=== PATIENT | female | born 1980 | race Caucasian/White ===

== ENCOUNTER 2018-03-26 15:07 | Emergency (ER) | payer BC, SELFPAY ==
[2018-03-26 15:09] VITALS: BP 109/71; PULSE 116; RESP 18; TEMP 40.4; O2SAT 97; BMI 28.3
--- NOTE | 2018-03-26 15:36 | ED.VISSUMM ---
- ER Visit Summary Date of Service: 03/26/18 Chief Complaint: Fever and chills History of Present Illness: The patient is a 37 F no senior past medical history only prior surgery and C-sections. States that on Thursday she started having fever, chills and body sweats. Mild nausea. Really denies any abdominal pain. No dysuria. No vaginal discharge she is currently on her menstrual cycle. She also has a dry nonproductive cough. Denies shortness of breath. No chest pain. She has diffuse body aches and headache. No significant neck pain. No rashes. She did recently travel from [place] on the plane. She has not been out of the country. Physical Examination: Vital signs are stable she is a fever of 104.7. Pulse ox 97% on room air. Heart rate of 116. She looks like she feels ill but does not look septic or toxic. She does not look severely dehydrated. She is in no distress. H EENT exam mildly dry mucous membranes. Posterior pharynx unremarkable. TMs normal. No facial droop. No trauma to the face or head. Neck nontender. No lymphadenopathy. Able to easily flex and touch her chin to her chest. No meningismus. Trachea midline. Lungs dry hacking cough. No rales, rhonchi or wheezing. Heart tachycardic rate about 116 no murmur. Chest wall nontender. Abdomen soft nontender nondistended normal bowel sounds no peritoneal signs. She is moving all 4 extremities. They are neurovascularly intact. There is no red, hot or swollen joints. The arms and legs are nontender with normal motion. Back is nontender no CVA tenderness. Skin unremarkable. No rashes. No petechiae or purpura. Neurologically he is awake and alert. Test Results: White count 12.3 H&H 11 and 33. No bands. BMP normal. Liver enzymes normal. UA normal. Lactic acid normal 1.0. Chest x-ray shows a left perihilar pneumonia. Blood cultures ?2 are pending. Rapid flu was negative. Emergency Department Course and Treatment: Female with a fever and diffuse body aches. Should be worked up for a bacterial infection versus a viral etiology. She will be treated with a liter normal saline and oral Tylenol. Treatment Plan: Oscar exam at 1735 patient feels better is doing well. She was treated with Tylenol currently her fever is 100. She was given a liter normal saline. I discussed with both her and her mother treatment inpatient versus outpatient. She prefers outpatient therapy. She will be given first dose of Levaquin here and placed on Levaquin the next 7 days. Return if feeling worse. Disposition: Discharge Impression: Acute fever Mild dehydration Community-acquired pneumonia left perihilar This note was generated with [employer] dictation software. It may contain incorrect words, spelling, and punctuation that were not noted in review of the chart prior to signing ED Disposition - Plan for ED Patient: Chief Complaint: Abd Pain Referrals: Shilo Camarena [Primary Care Provider] -
[2018-03-26] MEDS: 0.9% Normal Saline 1,000 ML 1000 ML IV (15:48)
[2018-03-26] MEDS: Acetaminophen 500 MG Tablet 1000 MG PO (15:48)
--- NOTE | 2018-03-26 16:10 | RAD_ITS ---
STUDY: X-RAY CHEST REASON FOR EXAM: Female, 37 years old. Severe cough and chest pain x3 days TECHNIQUE: PA and lateral views of the chest. COMPARISON: None. FINDINGS: EKG leads overlie the chest Lungs are expanded. Right lung is clear. There is a left perihilar opacification likely representing infiltrate but this could also represent a neoplastic process. Follow-up recommended to assure complete resolution. If there is not significant improvement within a week to 10 days, further evaluation with chest CT would be recommended to exclude an underlying lesion. There is no demonstrated effusion. Normal size heart. Normal mediastinum and arslan. Normal visualized pulmonary arteries. Normal visualized aortic arch and descending thoracic aorta. Normal visualized thoracic spine. Normal visualized ribs, clavicles, and shoulders. There is no demonstrated abnormality of the visualized soft tissue structures of the upper abdomen. RAD/Chest PA and Lateral IMPRESSION: Left perihilar opacification, likely infiltrate but neoplastic process cannot be excluded. Electronically Signed: Mayito Heart MD at 16:25 EDT , Service support ,
[2018-03-26 16:18] LABS: Absolute Lymphocyte Count 0.88 X10^3/ul (0.83-4.51); Absolute Neutrophil Count 10.6 X10^3/uL (2.0-7.7); Basophil# 0.02 X10^3/uL; Basophil% 0.2 % (0-1); Hematocrit 33.9 % (37-47); Hemoglobin 11.1 g/dl (12.0-15.0); Lymphocyte # 0.88 X10^3/ul (4.0); Lymphocyte % 7.1 % (19-41); Mean Corp Hgb Conc 32.7 g/gl (32-36); Mean Corpuscular Hgb 31.3 pg (27.0-32.0); Mean Corpuscular Volume 95.5 fL (81-99); Mean Platelet Vol. 9.3 fl (6.2-12.0); Monocyte# 0.81 X10^3/uL; Monocyte% 6.6 % (0-10); Neutrophil # 10.59 X10^3/uL (2.7-7.7); Neutrophil % 85.9 % (47-70); Platelet Count 159 K/mm3 (150-450); RBC Distribution Width CV 12.8 % (11.6-14.6); RBC Distribution Width SD 44.8 fl (35.1-43.9); Red Blood Count 3.55 M/mm3 (4.2-5.4); White Blood Count 12.3 K/mm3 (4.4-11.0)
[2018-03-26 16:20] LABS: POSITIVE COUNT NO; POSITIVE DIFFERENTIAL NO; POSITIVE MORPHOLOGY NO
[2018-03-26 16:27] LABS: AST(SGOT) 12 U/L (15-37); Alanine Aminotransfer ALT/SGPT 17 U/L (13-56); Albumin, Serum 3.4 g/dL (3.2-5.0); Alkaline Phosphatase 43 U/L (45-117); Anion Gap 9 (5-15); BUN 8 mg/dL (7-18); Bilirubin, Direct 0.11 mg/dL (0.00-0.30); Calcium,Total 8.5 mg/dL (8.5-10.1); Chloride 101 mmol/L (98-107); Creatinine, Serum 0.89 mg/dL (0.55-1.02); EST Glomerular Filtration Rate 74 mL/min (>60); Est Glom Filt Rate - Afr Amer 90 mL/min (>60); Estimated Creatinine Clearance 85.61 ml/min; Globulin 4.3 g/dL (2.2-4.2); Glucose 139 mg/dL (74-106); Potassium 3.6 mmol/L (3.5-5.1); Protein, Total 7.7 g/dL (6.4-8.2); Sodium Level 136 mmol/L (136-145)
[2018-03-26 17:05] LABS: Bacteria 0 SEEN /hpf (None Seen); Mucous, Urine 0 SEEN /hpf (<or=2+); Red Blood Cells-Urine 0 SEEN /hpf (0-5); White Blood Cells 0 SEEN /hpf (0-5)
[2018-03-26 17:10] VITALS: TEMP 37.8
[2018-03-26 17:14] LABS: Color, Urine Yellow (Yellow); Glucose, Dipstick Normal (Normal); Ketone-Dipstick 15 mg/dl (Negative); Leukocyte Esterase-Dipstick Negative /ul (Negative); Nitrite-Dipstick Negative (Negative); Occult Blood-Urine 50 /ul (Negative); Protein-Dipstick 30 mg/dl (Negative); Specific Gravity, Urine 1.005 (1.002-1.030); Urine Bilirubin Dipstick Negative (Negative); Urine Clarity Clear (Clear); Urine Urobilinogen Normal (Normal)
[2018-03-26 17:25] LABS: Squamous Epithelial Cells - UA 0-5 SEEN /hpf (5-10)
--- NOTE | 2018-03-26 17:43 | ED.DEP ---
ED Disposition - Plan for ED Patient: Disposition: Home or Assisted Living Chief Complaint: Abd Pain Instructions: ED Pneumonia Adult Prescriptions: levoFLOXacin tablet [Levaquin tablet] 500 mg PO DAILY 7 Days tab Referrals: Shilo Camarena [Primary Care Provider] - 3-5 Days Additional Instructions: Plenty of fluids and rest. Alternate Tylenol and Motrin for fever. Levaquin 1 pill per day till gone. Return if feeling worse. Otherwise follow-up your primary care physician to ensure you are improving and should have a repeat chest x-ray in several weeks to ensure that this is resolved.
[2018-03-26 17:50] VITALS: BP 111/60; PULSE 84; RESP 16; O2SAT 96
[2018-03-26] MEDS: levoFLOXacin 750 MG Tablet PO (17:50)
== END 2018-03-26 17:55 | disposition home or self-care (01) ==
PROVIDERS: Emergency Provider Emergency Medicine; Family Provider Family Medicine; PCP Family Medicine
DX: R50.9 Fever, unspecified (principal); E86.0 Dehydration; J18.9 Pneumonia, unspecified organism; Z87.891 Personal history of nicotine dependence
CPT/HCPCS: 71046; 80048; 80076; 81001; 83605; 85025; 87040; 87804; 96360; 99285; J7030

== ENCOUNTER 2020-07-30 08:10 | Emergency (ER) | payer BC, SELFPAY ==
[2020-07-30 08:11] VITALS: BP 126/75; PULSE 88; RESP 16; TEMP 36.2; O2SAT 99; BMI 27.3
--- NOTE | 2020-07-30 08:24 | RAD_ITS ---
INDICATION: PAIN STARTED OVER THE WEEKEND, NKI -- LEFT KNEE PAIN AND SWELLING, UNABLE TO BEAR WEIGHT EXAMINATION/TECHNIQUE: X-RAY - LEFT XR Knee Complete 4 Views or More 4 VIEWS COMPARISON: None. FINDINGS: SOFT TISSUES: No soft tissue swelling or gas. No radiopaque foreign body. BONES/JOINTS: No acute fracture or subluxation.. Normal alignment. Preservation of the joint space.. No sclerotic or destructive changes observed. A prominent flabella is identified. RAD/Knee 4 or More Views IMPRESSION: Normal left knee Electronically Signed: Rogers Harrison, at 9:11 EST Tel , Service support ,
--- NOTE | 2020-07-30 08:32 | ED.VIS.GEN ---
History of Present Illness Chief Complaint: Lower Extremity Injury Informant: Patient Narrative: Patient states that a couple days ago she pivoted slightly felt the pain and a shifting in her left knee. States she felt a pop. Since then it has now become swollen. She notes limited range of motion. She notes most of her pain is located in the medial posterior aspect of the left knee. Past Medical History - Allergies and Home Meds Allergies/Adverse Reactions: Allergies No Known Allergies Allergy (Verified 07/30/20 08:11) Primary Care Physician: Shilo Camarena DO [Primary Care Provider] - Past Medical History: None Surgical History: noncontributory Smoking Status: Never smoker Drugs: None Review of Systems General: Denies: Chills, Fever, Sweats Eyes: Denies: Visual changes - bilaterally, Diplopia ENT: Denies: Rhinorrhea, Sore throat Cardiovascular: Denies: Chest pain, Palpitations Respiratory: Denies: Dyspnea, Cough, Dyspnea on exertion Gastrointestinal: Denies: Abdominal pain, Nausea, Vomiting, Diarrhea, Melena, Hematochezia Genitourinary: Denies: Dysuria, Hematuria, Frequency Musculoskeletal: Reports: Extremity Pain. Denies: Back pain Skin: Denies: Rash, Wounds Neurological: Denies: Headache, Weakness, Numbness Physical Exam Vital Signs/Narrative: Vital Signs Temp Pulse Resp BP Pulse Ox 07/30/20 08:11 97.2 F L 88 16 126/75 H 99 Inital Vital Signs reviewed: Yes General: Well nourished, Well developed, No Acute Distress Head: Normocephalic, Atraumatic Eyes: Perrl, EOMI ENT: Moist mucous membranes, No rhinorrhea Neck: Supple, Nontender Cardiovascular: Regular rate, Regular rhythm, No murmurs Respiratory: No distress, CTA bilaterally, Chest nontender Abdomen: Soft, Nontender, Nondistended, Normal bowel sounds Back: Nontender, Normal Inspection Extremities: - - Positive grind test. Positive effusion. Ligaments appear stable though the patient is guarding. Skin: Normal color, No rash Neurological: Alert, Oriented x3, Cranial nerves II-XII grossly intact, Normal Strength, Normal Sensation Psychological: Normal affect, Normal Mood Diagnostic/Tx/Re-eval Clinical Impression(s) from Imaging Studies Knee X-Ray 07/30/20 08:24 IMPRESSION: Normal left knee Electronically Signed: Rogers Harrison at 9:11 EST Tel , Service support , - Medical Decision Making My interpretation of the plain films of the knee is no acute fracture. Her description of the events is concerning for meniscal injury. I will give her Jace wrap and crutches. Will refer her to orthopedics. Dr. Camarillo is on for no doc orthopedics. ED Disposition - Plan for ED Patient: Disposition: Home or Assisted Living Diagnosis: Knee pain, acute Instructions: ED Meniscal Injury Knee Poss Referrals: Zacarias Camarillo, [STAFF PHYSICIAN] - As soon as possible
[2020-07-30 09:47] VITALS: PULSE 78; RESP 18; O2SAT 99
== END 2020-07-30 09:48 | disposition home or self-care (01) ==
PROVIDERS: Emergency Provider Emergency Medicine; PCP Family Medicine
DX: M25.562 Pain in left knee (principal)
CPT/HCPCS: 73564; 99283

== ENCOUNTER 2023-08-29 07:29 | Emergency (ER) | payer BC, SELFPAY ==
[2023-08-29 07:30] VITALS: BP 123/78; PULSE 74; RESP 16; TEMP 37; O2SAT 100; BMI 28.8
--- NOTE | 2023-08-29 07:49 | VDLE_ITS ---
Reason For Study: Left leg swelling Procedure LEFT This is a venous duplex using B-mode, color GSV is normal. flow and spectral Doppler. CFV is compressible, spontaneous, phasic, Exam performed portable in ED. competent, and demonstrates normal A preliminary report was called and/or faxed augmentation. to [facility]. FV is compressible, spontaneous, phasic, competent and demonstrates normal augmentation. POP V is compressible, spontaneous, phasic, competent and demonstrates normal augmentation. T/P Trunk is compressible. PTV is compressible. LT PerV is compressible. Nonvascularized structure is noted in the left popliteal fossa that measures 1.20 x 3.18 x 4.20 cm. VL/Venous Duplex US, Unilateral Interpretation Summary Deep veins of the left lower extremity are patent and compressible segmentally. There is no evidence of left lower extremity deep vein thrombosis. Valvular competence appears intac t within the proximal deep venous system on the left . The left great saphenous vein appears patent a nd compressible segmentally. A non-vascular, hypoechoic structure is noted in the left poplitea l space, measuring 1.20 cm x 3.18 cm x 4.20 cm. This probably represents a popliteal cyst. Clinica l correlation is advised. Ordering Physician: James Tinoco Referring Physician: Shilo Camarena Performed By: Brandie Hathaway RVT
--- NOTE | 2023-08-29 07:51 | ED.VIS.LOWEX ---
HPI History of Present Illness Chief Complaint: Lower Extremity Injury Informant: patient Narrative Narrative: 43-year-old female seen in July with acute on chronic knee pain. She states that she has a tear in her lateral meniscus. She is seen [facility]. She has been occasionally using a neoprene sleeve for the left knee. Last night traveled to [facility] and noted that her left calf felt like it was in have a charley horse and was swollen. She notes swelling at the ankle joint. No prior history of DVT or PE. She spoke with orthopedics and was sent in for evaluation of DVT. She denies any chest pain shortness of breath. [facility] Medical History Former smoker Pneumonia Tear of lateral meniscus of knee joint Home Medications cefuroxime axetil 250 mg tablet 250 mg PO BID 07/30/20 [History Last Taken Unknown] loratadine-pseudoephedrine ER 10 mg-240 mg tablet,extended [id number] 1 tab PO DAILY 07/30/20 [History Last Taken Unknown] mecobalamin (vitamin B12) 1,000 mcg chewable tablet 1,000 mcg PO DAILY 07/30/20 [History Last Taken Unknown] multivitamin with minerals 1 tab PO DAILY 07/30/20 [History Last Taken Unknown] zinc 50 mg tablet 50 mg PO DAILY 07/30/20 [History Last Taken Unknown] Allergy/AdvReac Type Severity Reaction Status Date / Time No Known Allergies Allergy Verified 08/29/23 07:30 Social History Smoking Status: Never smoker ROS ROS ED Constitutional Constitutional ED: Denies chills, fever(s) or weight loss Eyes Eyes: Denies change in vision or diplopia ENT ENT ED: Denies ear pain, rhinorrhea or sore throat Cardiovascular Cardiovascular: Denies chest pain, orthopnea, palpitations or racing heartbeat Respiratory/Chest Respiratory/Chest: Denies cough, dyspnea or orthopnea Gastrointestinal Gastrointestinal: Denies abdominal pain, diarrhea, nausea or vomiting Genitourinary Genitourinary ED: Denies dysuria, hematuria or urinary frequency Musculoskeletal Musculoskeletal: Reports other Details: Left calf pain and swelling. Left knee pain and swelling ; Denies arthralgias or myalgias Integumentary Denies abscess or rash Neurologic Neurologic: Denies headache(s) or weakness Psychiatric Psychiatric: Denies anxiety, depression, suicidal ideation or suicidal thoughts Endocrine Endocrinology: Denies polydipsia, polyphagia or polyuria Allergic/Immunologic Allergic/Immunologic ED: Denies mouth swelling, tongue swelling or urticaria EXAM Physical Exam Const Vital Signs: 08/29/23 07:30 Temperature 98.6 F Temperature Source Temporal Pulse Rate 74 Respiratory Rate 16 Blood Pressure 123/78 H Blood Pressure Mean 93 Pulse Ox 100 Oxygen Delivery Method Room Air Positive well nourished and well developed General Appearance ED: well developed HEENT Reports normocephalic, head/scalp atraumatic and moist mucous membranes Eyes PERRL and EOMs intact bilaterally Neck no lymphadenopathy, supple and no JVD Resp normal respiratory effort and clear to auscultation bilaterally Cardio regular rate, regular rhythm and no murmurs GI normal to inspection, nondistended, normoactive bowel sounds and non-tender Palpation: soft Back/Spine no CVA tenderness and normal ROM Extremity Extremity Narrative: LLE: There is swelling of the left calf and ankle. No palpable cords. Calf is tender to palpation. There is some swelling of the knee joint. Tenderness laterally along the joint line. The thigh is nontender no palpable cords. +2 dorsalis pedis posterior tibial pulse General Extremety ED: Negative for edema General Extremity: Negative for edema Neuro oriented x3 and CN's II-XII intact bilaterally Sensorium / Orientation: alert Motor Exam: strength 5/5 throughout Psych mental status grossly normal Mood & Affect: Negative for depressed or tearful Skin no rashes or lesions noted and no wounds MDM MDM MDM Narrative Medical decision making narrative: Duplex ultrasound was obtained. This was negative for DVT. There was noted to be a cystic structure in the popliteal fossa that could be consistent with a Flores's cyst. At this point believe the patient to be able to be discharged. Would recommend compression stocking if needed. Elevation of legs. Follow-up with orthopedics return if worsening or concerns Discharge Plan Triage Chief Complaint: Lower Extremity Injury ED Provider: James Tinoco Dx/Rx/DC Orders Clinical Impression: Pain of left calf, Left leg swelling, Flores's cyst of knee Instructions: ED Flores's Cyst Prescriptions: No Action cefuroxime axetil 250 MG tablet 250 mg PO BID loratadine-pseudoephedrine 1 EACH tablet extended release 24 hr 1 tab PO DAILY zinc 50 MG tablet 50 mg PO DAILY multivitamin with minerals 1 EACH tablet 1 tab PO DAILY mecobalamin (vitamin B12) 1,000 MCG tablet,chewable 1,000 mcg PO DAILY Primary Care Provider: Shilo Camarena Referrals: Shilo Camarena DO [Primary Care Provider] - As Needed Activity Restrictions/Additional Instructions: Please follow-up with orthopedics Disposition Disposition: Home, Self Care
[2023-08-29 11:00] VITALS: BP 119/68; PULSE 68; RESP 16; O2SAT 99
== END 2023-08-29 11:13 | disposition home or self-care (01) ==
PROVIDERS: Emergency Provider Emergency Medicine; PCP Family Medicine; Visit Provider Emergency Medicine
DX: M79.662 Pain in left lower leg (principal); G89.29 Other chronic pain; M71.20 Synovial cyst of popliteal space [Baker], unspecified knee; Z87.891 Personal history of nicotine dependence; M79.89 Other specified soft tissue disorders
CPT/HCPCS: 93971; 99282

== ENCOUNTER → 2024-01-22 | Outpatient (CLI) | payer BC, SELFPAY ==
--- NOTE | 2024-01-22 10:54 | VDLE_ITS ---
Reason For Study: LLE PAIN Procedure LEFT This is a venous duplex using B-mode, color GSV is normal. flow and spectral Doppler. CFV is compressible, spontaneous, phasic, Exam performed in department. competent, and demonstrates normal A preliminary report was called and/or faxed augmentation. to DR. Luis Parr @ [phone] @ 11:30 FV is compressible, spontaneous, phasic, am. competent and demonstrates normal augmentation. POP V is compressible, spontaneous, phasic, competent and demonstrates normal augmentation. T/P Trunk is compressible. PTV is compressible. LT PerV is compressible. ANAECHOIC NONVASCULAR STRUCTURE measuring 5.62cm x 2.56cm noted in LT Pop Fossa space. VL/Venous Duplex US, Unilateral Interpretation Summary Deep veins of the left lower extremity are patent and compressible segmentally. There is no evidence of left lower extremity deep vein thrombosis. Valvular competence appears intac t within the proximal deep venous system on the left . The left great saphenous vein appears patent a nd compressible segmentally. A non-vascular, hypoechoic structure is noted in the left poplitea l space, measuring 5.62 cm x 2.56 cm. This probably represents a popliteal cyst. Clinical correlat ion is advised. Ordering Physician: Luis Parr Referring Physician: Shilo Camarena Performed By: Ewa Judge, RDCS, RVT
== END | disposition home or self-care (01) ==
LOC: CVS 10:50
PROVIDERS: PCP Family Medicine; Referring Provider Orthopaedic Surgery; Visit Provider Orthopaedic Surgery
DX: M79.662 Pain in left lower leg (principal)
CPT/HCPCS: 93971